=== PATIENT | male | born 1960 | race Caucasian/White ===

== ENCOUNTER 2025-03-27 15:12 | Emergency (ER) | payer OTHER ==
[2025-03-27 15:57] LABS: Hematocrit 41.9 % (39.6-49.0); Hemoglobin 14.0 g/dL (13.6-17.9); MCH 34.3 pg (27.0-35.0); MCV 102.8 fL (80-100); RBC Red Blood Cell Count 4.07 M/uL (4.33-5.43); White Blood Count 17.30 thou/uL (4.3-10.9)
[2025-03-27 15:58] LABS: Absolute Lymphocytes (CBC) 0.7 K/uL (0.7-4.9); MCHC 33.4 g/dL (32.0-36.0); MPV 8.7 fL (7.6-11.3); Nucleated RBC Absolute Count 0.0 (0-0); Nucleated Red Blood Cells % 0.0 % (0-0)
[2025-03-27 16:22] LABS: Anion Gap 8.5 mEq/L (5.0-15.0); BUN Blood Urea Nitrogen 22.0 mg/dL (7-18); Glucose Level 107.0 mg/dL (74-106); Potassium 3.5 mEq/L (3.5-5.1); Troponin High Sensitivity 16.8 pg/mL (<58.9)
[2025-03-27 16:39] LABS: Blood Morphology Comment NOTED (NOT SEEN); Differential Total Cells Count 100; Macrocytosis 1+; Ovalocytes SLIGHT; Segmented Neutrophils 87 % (40-80)
--- NOTE | 2025-03-27 16:53 | RAD REPORT ---
EXAMINATION: ONE VIEW CHEST XR CLINICAL INDICATION: Male, 64 years old.,syncope TECHNIQUE: Frontal chest projection is submitted. Examination is limited by patient positioning and t echnique. COMPARISON: No prior exam. FINDINGS: The lungs are well inflated and clear apart from mild central interstitial prominence. No pneumothor ax or sizable effusion. The heart is normal in size. Mediastinal contours are unremarkable. IMPRESSION: Mild central interstitial prominence could relate to central congestive changes.
[2025-03-27] MEDS ORDERED: NA CHLORIDE 0.9% 1,000 ML ONE (17:08)
--- NOTE | 2025-03-27 17:43 | EDPHYS ---
Physician Documentation [facility] Name: Charles Stephen Age: 64 yrs Sex: Male : 1960 Arrival Date: 03/27/2025 Time: 15:12 Bed 4 Private MD: ED Physician Kb Mcgowan HPI: 03/27 15:53 This 64 yrs old Male presents to ER via Ambulatory with complaints of Passed Out Prior cr8 To Arrival. 15:53 Patient is a 64-year-old male with a history of mental impairment, hyperlipidemia, cr8 dementia that comes in the emergency room after 2 episodes of syncope. Family member reports that the patient stood up and passed out. The episode was few seconds. Reports later in the day he stood up again and passed out. Reports that the patient has been in his normal state of health until last several days. Patient is at his neurological baseline given his learning disability.. Historical: - Allergies: 15:28 No Known Allergies; dd2 - PMHx: 15:28 Hypothyroidism; Alzheimer's disease; dd2 - PSHx: 15:28 None; dd2 - Social history:: Smoking status: Patient denies any tobacco usage or history of. ROS: 15:53 Constitutional: as per HPI cr8 Exam: 15:53 Constitutional: This is a well developed, well nourished patient who is awake, alert, cr8 and in no acute distress. 18:09 Cardiovascular: Regular rate and rhythm with a normal S1 and S2. No gallops, murmurs, cr8 or rubs. Respiratory: Lungs have equal breath sounds bilaterally, clear to auscultation. No rales, rhonchi or wheezes noted. No increased work of breathing. Abdomen/GI: Soft, non-tender, with normal bowel sounds. No distension. No guarding or rebound. Patient has inguinal hernia without any evidence of strangulation or incarceration. There is also a ventral hernia that is soft reducible Skin: Warm, dry with normal turgor. Normal color with no rashes, no lesions, and no evidence of cellulitis. MS/ Extremity: Pulses equal, no cyanosis. Neurovascular intact. Full, normal range of motion. Neuro: Awake and alert, GCS 15, patient is at neurological baseline given his history of mental disability Vital Signs: 15:26 BP 122 / 79; Pulse 77; Resp 16; Temp 98.3; Pulse Ox 100% ; dd2 16:00 BP 124 / 64; Pulse 65; Resp 14; Pulse Ox 100% on R/A; nh2 17:00 BP 113 / 69 Supine; Pulse 62; Resp 18; Pulse Ox 98% ; nh2 17:01 BP 122 / 81 Sitting; Pulse 72; Resp 18; Pulse Ox 100% ; nh2 17:02 BP 113 / 68 Standing; Pulse 83; Resp 18; Pulse Ox 100% on R/A; nh2 MDM: 15:24 Medical Screening Exam initiated cr8 15:24 Data reviewed: vital signs, nurses notes, old medical records, lab test result(s), EKG, cr8 radiologic studies. Consideration of Admission/Observation Patient was admitted/placed on observation. Counseling: I had a detailed discussion with the patient and/or guardian regarding the historical points, exam findings, and any diagnostic results supporting the discharge/admit diagnosis, lab results, radiology results, the need for further work-up and treatment in the hospital, to return to the emergency department if symptoms worsen or persist or if there are any questions or concerns that arise at home. Refusal of service: The patient/guardian displays adequate decision making capability and despite a detailed discussion of alternatives, benefits, risks, and consequences refuses: Admission to the hospital for further work-up and treatment. ED course: Patient coming in for syncopal episodes. Low suspicion for orthostatic syncope given lack of dehydration, no evidence of acute life threatening hemorrhage (stable hgb). Presentation not consistent with seizures given short time course, no postictal state, no seizure activity. Low suspicion for acute neurologic catastrophes to include ICH given lack of trauma, risk factors for bleeding, or stroke given no focal neuro deficits. Low suspicion for vascular catastrophes to include PE, thoracic aortic dissection, AAA rupture. Patient had left bundle branch block and LVH on EKG so wanted to keep patient for observation and further cardiac evaluation. Also his white blood cell count was elevated at 17 with increased bands. There was no evidence of infection from HPI and examination. Was waiting to obtain a urine to further evaluate. I wanted to go ahead and admit the patient for observation for further evaluation. The brother who makes medical decisions for him did not want to keep the patient in the hospital. I explained that we are unable to rule out a cardiac cause of his syncopal episodes and the most concerning thing would be a cardiac arrhythmia. Explained that cardiac arrhythmia could cause him to pass out again at home and worst-case scenario would be . Also explained that we did not have a cause for his leukocytosis at this time and will admit him for further evaluation to evaluate why his white blood cell count is elevated. The brother verbalized understanding but still did not want the patient to be in hospital states he has a appointment tomorrow morning with his director of infection prevention and he will take the patient there. Did discuss risk and hazards with the patient' brother verbalized understanding.s brother signed the AGAINST MEDICAL ADVICE paperwork. They are advised they could turn a time.. 18:09 ECG was reviewed by the Attending Physician. cr8 03/27 15:30 Order name: Basic Metabolic Panel; Complete Time: 16:23 cr8 03/27 15:30 Order name: CBC with Diff; Complete Time: 16:42 cr8 03/27 15:30 Order name: Troponin HS; Complete Time: 16:23 cr8 03/27 16:06 Order name: Manual Differential; Complete Time: 16:42 EDMS 03/27 15:30 Order name: XRAY Chest (1 view); Complete Time: 16:58 cr8 03/27 15:30 Order name: EKG; Complete Time: 15:31 cr8 03/27 15:30 Order name: Cardiac monitoring; Complete Time: 15:34 cr8 03/27 15:30 Order name: EKG - Nurse/Tech; Complete Time: 15:34 cr8 03/27 15:30 Order name: IV Saline Lock; Complete Time: 15:41 cr8 03/27 16:02 Order name: Orthostatic Blood Pressure; Complete Time: 17:02 cr8 EC:24 Rate is 81 beats/min. Rhythm is regular. TX interval is normal. QRS interval is cr8 prolonged. QT interval is normal. No ST changes noted. Clinical impression: Left bundle branch block with LVH, no STEMI. Interpreted by me. Reviewed by me. Administered Medications: 17:19 Drug: NS 0.9% IV 1000 ml IV at 1000 ml once; to be given as a bolus over 60 minutes nh2 Route: IV; Rate: 1000 ml; Site: right antecubital; Disposition: 20:21 I was immediately available on-site in the Emergency Department for consultation in the ms3 care of the patient. Disposition Summary: 03/27/25 18:09 Discharge Ordered Notes: Location: Home(03/27/25 18:09) cr8 Condition: Stable(03/27/25 18:09) cr8 Diagnosis - Syncope cr8 - Leukocytosis cr8 Followup: cr8 - With: Private Physician - When: 1 - 2 days - Reason: Recheck today's complaints, Re-evaluation by your physician Followup: cr8 - With: Emergency Department - When: As needed - Reason: Trouble breathing, Worsening of condition, Recheck today's complaints, Continuance of care Discharge Instructions: - Discharge Summary Sheet cr8 - Syncope cr8 - Leukocytosis cr8 Forms: - Medication Reconciliation Form cr8 - Antibiotic Education cr8 - Prescription Opioid Use cr8 - Patient Portal Instructions cr8 - Leadership Thank You Letter cr8 Signatures: Dispatcher [employer] EDMS Kb Mcgowan DO DO ms3 SHERMAN BURR RN RN dd2 Mitchel Waldrop Jr, RN RN nh2 Medardo Larson NP BOOKMOBI[employer] LIBRARIAN cr8 Corrections: (The following items were deleted from the chart) 18:08 17:43 Home cr8 cr8 18:08 17:43 new cr8 cr8 18:08 17:43 are unchanged cr8 cr8 18:08 17:43 Stable cr8 cr8 18:08 17:43 Syncope cr8 cr8 18:08 17:43 Leukocytosis cr8 cr8
--- NOTE | 2025-03-27 17:43 | ER ---
Nurse's Notes [facility] Name: Charles Stephen Age: 64 yrs Sex: Male : 1960 Arrival Date: 03/27/2025 Time: 15:12 Bed 4 Private MD: Diagnosis: Syncope;Leukocytosis Presentation: 03/27 15:26 Chief complaint: Parent and/or Guardian states: PT PASSED OUT TWICE THIS MORNING, WENT dd2 TO THE PCP AND SENT HERE FOR FURTHER EVALUATION FOR ABNORMAL EKG. PT DENIES CP. Coronavirus screen: At this time, the client does not indicate any symptoms associated with coronavirus-19. Ebola Screen: No symptoms or risks identified at this time. Initial Sepsis Screen: Does the patient meet any 2 criteria? No. Patient's initial sepsis screen is negative. Does the patient have a suspected source of infection? No. Patient's initial sepsis screen is negative. Risk Assessment: Do you want to hurt yourself or someone else? Patient reports no desire to harm self or others. Onset of symptoms was March 27, 2025. 15:26 Method Of Arrival: Ambulatory dd2 15:26 Acuity: NICK 3 dd2 Triage Assessment: 15:28 General: Appears in no apparent distress. well groomed, well nourished, Behavior is dd2 calm, cooperative, appropriate for age. Pain: Denies pain. Neuro: Reports a syncopal episode. Historical: - Allergies: 15:28 No Known Allergies; dd2 - PMHx: 15:28 Hypothyroidism; Alzheimer's disease; dd2 - PSHx: 15:28 None; dd2 - Social history:: Smoking status: Patient denies any tobacco usage or history of. Screenin:30 [facility] ED Fall Risk Assessment (Adult) History of falling in the last 3 months, nh2 including since admission No falls in past 3 months (0 pts) Confusion or Disorientation No (0 pts) Intoxicated or Sedated No (0 pts) Impaired Gait No (0 pts) Mobility Assist Device Used No (0 pt) Altered Elimination No (0 pt) Score/Fall Risk Level 0 - 2 = Low Risk Oriented to surroundings, Maintained a safe environment, Educated pt \T\ family on fall prevention, incl call for assistance when getting out of bed, Assessed \T\ reinforced patient's understanding of fall precautions, Provided non-skid footwear, Hourly rounding (assess needs \T\ fall precautionary measures) done, Used ambulatory aids as needed (educated on \T\ assisted with). Abuse screen: Denies threats or abuse. Denies injuries from another. Nutritional screening: No deficits noted. Tuberculosis screening: No symptoms or risk factors identified. Vital Signs: 15:26 BP 122 / 79; Pulse 77; Resp 16; Temp 98.3; Pulse Ox 100% ; dd2 16:00 BP 124 / 64; Pulse 65; Resp 14; Pulse Ox 100% on R/A; nh2 17:00 BP 113 / 69 Supine; Pulse 62; Resp 18; Pulse Ox 98% ; nh2 17:01 BP 122 / 81 Sitting; Pulse 72; Resp 18; Pulse Ox 100% ; nh2 17:02 BP 113 / 68 Standing; Pulse 83; Resp 18; Pulse Ox 100% on R/A; nh2 ED Course: 15:19 Patient arrived in ED. cj3 15:19 Medrado Larson NP is PHCP. cr8 15:19 Kb Mcgowan DO is Attending Physician. cr8 15:26 EKG done, by ED staff, reviewed by Medardo Larson NP. rk3 15:28 Triage completed. dd2 15:28 Arm band placed on right wrist. dd2 15:30 No provider procedures requiring assistance completed. nh2 15:30 Patient has correct armband on for positive identification. Placed in gown. Bed in low nh2 position. Call light in reach. Side rails up X 1. Adult w/ patient. Provided Education on: call light use. cardiac monitor technician on. Pulse ox on. NIBP on. Warm blanket given. 15:40 Jaylin Le, ALTON is Primary Nurse. jp5 15:40 Inserted saline lock: 20 gauge in right antecubital area, using aseptic technique. nh2 Blood collected. Flushed with 10 mL NS. 15:41 Basic Metabolic Panel Sent. jp5 15:41 CBC with Diff Sent. jp5 15:41 Troponin HS Sent. jp5 16:22 XRAY Chest (1 view) In Process Unspecified. EDMS 17:57 IV discontinued, intact, bleeding controlled, No redness/swelling at site. Pressure jp5 dressing applied. 18:07 Primary Nurse role handed off by Jaylin Le, ALTON cr8 Administered Medications: 17:19 Drug: NS 0.9% IV 1000 ml IV at 1000 ml once; to be given as a bolus over 60 minutes nh2 Route: IV; Rate: 1000 ml; Site: right antecubital; Medication: 15:30 VIS not applicable for this client. nh2 Outcome: 17:58 AMA AMA form signed jp5 17:58 Condition: stable 17:58 Patient left the ED. jp5 18:09 Discharge ordered by MD. arriaga 18:10 Patient left the ED. jp5 Signatures: Dispatcher [employer] EDMS Jaylin Le RN RN jp5 SHERMAN BURR RN RN dd2 Mitchel Waldrop Jr, RN RN nh2 Ruth De3 Blanka Vee3 Medardo Larson NP SENIOR CYBER SECURITY ANALYST cr8
[2025-03-27 18:14] VITALS: TEMP 98.3
[2025-03-27 18:54] VITALS: O2SAT 100
[2025-03-27 18:56] VITALS: BP 113/68
== END 2025-03-27 18:10 | disposition home or self-care (01) ==
LOC: ER 15:12
DX: R55 Syncope and collapse (principal); D72.829 Elevated white blood cell count, unspecified; G30.9 Alzheimer's disease, unspecified; F02.80 Dementia in other diseases classified elsewhere, unspecified severity, without behavioral disturbance, psychotic disturbance, mood disturbance, and anxiety
CPT/HCPCS: 93005; 85025; 80048; 36415; 84484; 71045; 99285; J7030